=== PATIENT | female | born 1955 | race Caucasian/White ===

== ENCOUNTER → 2024-05-27 14:22 | Outpatient (REF) | payer MEDICARE, OTHER, SELFPAY | LOC: RCS 14:22 | PROVIDERS: ATTENDING PHYSICIAN Internal Medicine Cardiovascular Disease; FAMILY PHYSICIAN Family Medicine | DX: I35.0 Nonrheumatic aortic (valve) stenosis (principal); E78.00 Pure hypercholesterolemia, unspecified | CPT/HCPCS: 93306 ==

== ENCOUNTER → 2025-03-06 12:55 | Outpatient (REF) | payer MEDICARE, OTHER, SELFPAY | LOC: RAD 12:55 | PROVIDERS: ATTENDING PHYSICIAN Nurse Practitioner Family | DX: U07.1 COVID-19 (principal) | CPT/HCPCS: 71046 ==

== ENCOUNTER → 2025-09-24 13:00 | Outpatient (REF) | payer MEDICARE, OTHER, SELFPAY | LOC: RAD 13:00 | PROVIDERS: FAMILY PHYSICIAN Family Medicine | DX: R06.09 Other forms of dyspnea (principal); J47.9 Bronchiectasis, uncomplicated | CPT/HCPCS: 71046 ==

== ENCOUNTER → 2025-10-05 11:17 | Outpatient (REF) | payer MEDICARE, OTHER, SELFPAY | LOC: REG 11:17 | PROVIDERS: ATTENDING PHYSICIAN Nurse Practitioner Family | DX: M25.561 Pain in right knee (principal) | CPT/HCPCS: 73564 ==